=== PATIENT | male | born 1995 | race Caucasian/White ===

== ENCOUNTER 2018-07-15 13:40 | Emergency (ER) | payer BC ==
[2018-07-15] MEDS ORDERED: Sodium Chloride 0.9% 1,000 ML IV ONE (13:51)
[2018-07-15] MEDS ORDERED: Sodium Chloride 0.9% 10 ML Syringe FLUSH PRN (13:51)
--- NOTE | 2018-07-15 14:10 | EDM.PDOC ---
ED HPI GENERAL MEDICAL PROBLEM - General Chief Complaint: Syncope Stated Complaint: Passed out in back of work truck Time Seen by Provider: 07/15/18 13:45 Source of Information: Reports: Patient, RN, RN Notes Reviewed History Limitations: Reports: No Limitations - History of Present Illness INITIAL COMMENTS - FREE TEXT/NARRATIVE: Patient presents to the ED at [facility] after he had a syncopal episode at work. Patient states that he was unloading boxes out of the back of a [employer] truck when he passed out. The patient remembers moving the boxes and then next remembers waking up in the back of the truck. The patient denies any head injury or trauma. The patient denies any chest pain or shortness of breath. The patient states he feels a little bit tired. The patient does not have any abdominal pain. The patient states that he did have some night sweats and chills about one week ago. The patient denies any focal neurological deficits. The patient states that he feels dehydrated. The patient states that he has had syncopal episodes in the past for quite some time. He has never had any workup for this. The patient denies any headache. The patient states that he feels very tired. The patient's last known meal was this morning for breakfast, he did not eat any dinner. The patient states that he felt very sweaty last night while trying to sleep. The patient states that the syncopal episode happened about 10-15 minutes prior to presentation to this emergency room. Patient states this is a chronic issue. He has had many workups in the past without any conclusive etiology. The patient states "they have never found out why I keep passing out." Onset: Today, Sudden Onset Date: 07/15/18 - Related Data Allergies Allergy/AdvReac Type Severity Reaction Status Date / Time loratadine Allergy Bronchospas Verified 07/15/18 14:33 ms minocycline Allergy Hives Verified 07/15/18 14:33 Home Meds: Home Meds . [No Known Home Meds] 07/15/18 [History] ED ROS GENERAL - Review of Systems Review Of Systems: See Below Constitutional: Reports: Chills, Fatigue. Denies: Fever, Weakness Respiratory: Denies: Shortness of Breath, Cough Cardiovascular: Denies: Chest Pain, Palpitations Endocrine: Reports: Fatigue GI/Abdominal: Denies: Abdominal Pain, Nausea, Vomiting Skin: Reports: No Symptoms Neurological: Reports: No Symptoms. Denies: Confusion, Dizziness, Headache - Physical Exam Exam: See Below Exam Limited By: No Limitations General Appearance: Alert, No Apparent Distress Eye Exam: Bilateral Eye: Normal Inspection, PERRL Head Exam: Atraumatic, Normocephalic Neck: Supple Respiratory/Chest: No Respiratory Distress, Lungs Clear, Normal Breath Sounds Cardiovascular: Normal Peripheral Pulses, Regular Rate, Rhythm GI/Abdominal: Normal Bowel Sounds, Soft, Non-Tender Neuro Exam (Abbreviated): Alert, Oriented, Normal Cognition Skin Exam: Warm, Dry, Intact, Normal Color EKG INTERPRETATION EKG Date: 07/15/18 Time: 14:07 Rhythm: NSR Rate (Beats/Min): 62 [place]: Normal P-Wave: Present QRS: Normal ST-T: Normal QT: Normal ND/PQ Interval: 0.14 Comparison: NA - No Prior EKG EKG Interpretation Comments: 1. Sinus Rhythm with sinus arrhythmia 2. Normal ECG Course - Vital Signs Last Recorded V/S: Last Vital Signs Temp 36.6 C 07/15/18 14:00 Pulse 82 07/15/18 14:00 Resp 16 07/15/18 14:00 BP 144/75 H 07/15/18 14:00 Pulse Ox 98 07/15/18 14:00 - Orders/Labs/Meds Orders: Active Orders 24 hr Category Date Time Status EKG 12 Lead [EKG Documentation Completion] [RC] STAT Care 07/15/18 13:51 Active UA W/MICROSCOPIC [URIN] Stat Lab 07/15/18 13:50 Ordered Sodium Chloride 0.9% [Saline Flush] Med 07/15/18 13:51 Active 10 ml FLUSH ASDIRECTED PRN Peripheral IV Insertion Adult [OM.PC] Routine Oth 07/15/18 13:51 Ordered Medication Orders Sodium Chloride (Saline Flush) 10 ml FLUSH ASDIRECTED PRN PRN Reason: Keep Vein Open Labs: Laboratory Tests 07/15/18 07/15/18 Range/Units 14:00 14:00 WBC 6.4 (4.0-10.0) x10^3/uL RBC 5.04 (4.5-6.0) x10^6/uL Hgb 15.2 (14.0-18.0) g/dL Hct 43.8 (40.0-52.0) % MCV 86.9 (78.0-93.0) fL MCH 30.2 (26.0-32.0) pg MCHC 34.7 (32.0-36.0) g/dL RDW Coeff of Melanie 12.3 (10.0-15.0) % Plt Count 268 (130-400) x10^3/uL Neut % (Auto) 50.0 (50.0-80.0) % Lymph % (Auto) 36.7 (25.0-50.0) % [place] % (Auto) 11.4 H (2.0-11.0) % Eos % (Auto) 1.6 (0.0-4.0) % Baso % (Auto) 0.3 (0.2-1.2) % Sodium 136 (136-145) mmol/L Potassium 4.4 (3.5-5.1) mmol/L Chloride 104 (98-107) mmol/L Carbon Dioxide 23 (21-32) mmol/L Anion Gap 13.4 (10-20) mmol/L BUN 11 (7-18) mg/dL Creatinine 0.9 (0.70-1.30) mg/dL Est Cr Clr Drug Dosing TNP Estimated GFR (MDRD) > 60 Glucose 91 (74-106) mg/dL Calcium 9.5 (8.5-10.1) mg/dL Magnesium 1.8 (1.8-2.4) mg/dL Meds: Medications Generic Name Dose Route Start Last Admin Trade Name Freq PRN Reason Stop Dose Admin Sodium Chloride 10 ml 07/15/18 13:51 Saline Flush FLUSH ASDIRECTED PRN Keep Vein Open Discontinued Medications Generic Name Dose Route Start Last Admin Trade Name Freq PRN Reason Stop Dose Admin Sodium Chloride 1,000 mls @ 999 mls/hr 07/15/18 13:51 07/15/18 14:05 Normal Saline IV 07/15/18 14:51 999 mls/hr ONETIME ONE Administration Departure - Departure Time of Disposition: 15:10 Disposition: Home, Self-Care 01 Condition: Good Clinical Impression: Syncope Qualifiers: Syncope type: unspecified Qualified Code(s): R55 - Syncope and collapse - Discharge Information *PRESCRIPTION DRUG MONITORING PROGRAM REVIEWED*: Not Applicable *COPY OF PRESCRIPTION DRUG MONITORING REPORT IN PATIENT NANDINI: Not Applicable Instructions: Syncope Referrals: PCP,None [Primary Care Provider] - Forms: ED Department Discharge Additional Instructions: 1. Stay very well hydrated and rest 2. See your Primary as symptoms 3. Call us with any questions or concerns - Problem List Review Problem List Initiated/Reviewed/Updated: Yes - My Orders Last 24 Hours: My Active Orders 07/15/18 13:50 UA W/MICROSCOPIC [URIN] Stat 07/15/18 13:51 EKG 12 Lead [EKG Documentation Completion] [RC] STAT Sodium Chloride 0.9% [Saline Flush] 10 ml FLUSH ASDIRECTED PRN Peripheral IV Insertion Adult [OM.PC] Routine - Assessment/Plan Last 24 Hours: My Active Orders 07/15/18 13:50 UA W/MICROSCOPIC [URIN] Stat 07/15/18 13:51 EKG 12 Lead [EKG Documentation Completion] [RC] STAT Sodium Chloride 0.9% [Saline Flush] 10 ml FLUSH ASDIRECTED PRN Peripheral IV Insertion Adult [OM.PC] Routine Assessment:: Syncope Plan: Labs and EKG discussed with patient. No acute emergency found for syncope. No further workup required as this is a chronic condition without any new symptoms. Recommend to stay well hydrated. Recommend follow up with PCP to for a recheck in the next week.
[2018-07-15 14:23] LABS: CHLORIDE,CL 104 mmol/L (98-107); SODIUM,NA 136 mmol/L (136-145)
[2018-07-15 14:25] LABS: ANION GAP 13.4 mmol/L (10-20)
== END 2018-07-15 15:25 | disposition home or self-care (01) ==
LOC: VM.ED 13:40
DX: R55 Syncope and collapse (principal); Y99.0 Civilian activity done for income or pay; Z88.8 Allergy status to other drugs, medicaments and biological substances
CPT/HCPCS: 36415; 80048; 83735; 85025; 93005; 96360; 99284; J7030